=== PATIENT | female | born 1985 | race African-American/Black ===

== ENCOUNTER 2018-11-28 06:53 | Emergency (ER) | payer OTHER ==
[2018-11-28] MEDS ORDERED: SODIUM CHLORIDE 0.9% 1,000 ML IV ONE (07:35)
--- NOTE | 2018-11-28 07:37 | ED Physician Documentation ---
PD HPI ABD PAIN - Stated complaint Stated Complaint: ABD PX - Chief complaint Chief Complaint: Abd Pain - History obtained from History obtained from: Patient, Family - History of Present Illness Timing - onset: How many days ago (3) Timing - duration: Days (3) Timing - details: Abrupt onset, Still present Quality: Sharp, Pain Location: Suprapubic Improved by: Other (nothing) Worsened by: Other (nothing) Associated symptoms: Nausea. No: Vomiting, Diarrhea, Constipation, Dysuria, Chest pain, Dizzy, Loss of appetite, Vaginal dc Similar symptoms before: Has not had sx before Recently seen: Not recently seen - Additional information Additional information: Previously well 33-year-old female has developed severe supra pubic abdominal pain that comes in waves lasting about 1 minute. She is not able to localize the pain any more than the lower abdomen cramping. She states the pain is bad enough to stop her in her tracks and she is had to go home from work. She has had multiple episodes of pain per hour and when her pain is resolved she has no pain. She has not had urinary symptoms she has not had constipation or diarrhea. She has some nausea without vomiting. Review of Systems Constitutional: denies: Fever, Chills Eyes: denies: Decreased vision Ears: denies: Ear pain Nose: denies: Rhinorrhea / runny nose, Congestion Throat: denies: Sore throat Cardiac: denies: Chest pain / pressure, Palpitations Respiratory: denies: Dyspnea, Cough GI: reports: Abdominal Pain, Nausea. denies: Vomiting, Constipation, Diarrhea : denies: Dysuria, Frequency Skin: denies: Rash Musculoskeletal: denies: Neck pain, Back pain, Extremity pain Neurologic: denies: Generalized weakness, Focal weakness, Numbness PD PAST MEDICAL HISTORY - Present Medications Home Medications: Ambulatory Orders Medication Instructions Recorded Confirmed Hydrocodone/Acetaminophen 1 - 2 each PO Q6H PRN #14 tablet 11/28/18 [Hydrocodon-Acetaminophen 5-325] - Allergies Allergies/Adverse Reactions: Allergies Allergy/AdvReac Type Severity Reaction Status Date / Time No Known Drug Allergies Allergy Verified 11/28/18 07:07 PD ED PE NORMAL - Vitals Vital signs reviewed: Yes (hypertensive ) - General General: Alert and oriented X 3, No acute distress, Well developed/nourished - HEENT HEENT: Atraumatic, PERRL, EOMI - Neck Neck: Supple, no meningeal sign, No bony TTP - Cardiac Cardiac: RRR, No murmur - Respiratory Respiratory: No respiratory distress, Clear bilaterally - Abdomen Abdomen: Normal bowel sounds, Soft, Non tender, Non distended, No organomegaly - Back Back: No CVA TTP, No spinal TTP - Derm Derm: Normal color, Warm and dry, No rash - Extremities Extremities: No deformity, No edema - Neuro Neuro: Alert and oriented X 3, speed belt sander 2-12 intact, No motor deficit, No sensory deficit, Normal speech Eye Opening: Spontaneous Motor: Obeys Commands Verbal: Oriented GCS Score: 15 - Psych Psych: Normal mood, Normal affect Results - Vitals Vitals: Vital Signs - 24 hr 11/28/18 07:03 Temperature 36.6 C Heart Rate 65 Respiratory 16 Rate Blood Pressure 135/85 H O2 Saturation 100 Oxygen O2 Source Room air - Labs Labs: Laboratory Tests 11/28/18 11/28/18 11/28/18 07:36 07:45 07:45 WBC 4.9 RBC 3.98 L Hgb 12.0 Hct 36.2 L MCV 90.9 MCH 30.1 MCHC 33.1 RDW 14.4 Plt Count 273 MPV 6.5 L Neut # (Auto) 2.9 Lymph # (Auto) 1.4 L Cascade # (Auto) 0.4 Eos # (Auto) 0.2 Baso # (Auto) 0.0 Absolute Nucleated RBC 0.00 Nucleated RBC % 0.1 Sodium 141 Potassium 3.3 L Chloride 105 Carbon Dioxide 24 Anion Gap 12.0 BUN 11 Creatinine 0.8 Estimated GFR (MDRD) 100 Glucose 96 Calcium 8.5 Total Bilirubin 0.4 AST 15 ALT < 10 L Alkaline Phosphatase 30 L Total Protein 6.7 Albumin 3.6 Globulin 3.1 Albumin/Globulin Ratio 1.2 Lipase 37 Urine Color YELLOW Urine Clarity CLEAR Urine pH 6.0 Ur Specific [place] >=1.030 H Urine Protein NEGATIVE Urine Glucose (UA) NEGATIVE Urine Ketones NEGATIVE Urine Occult Blood TRACE-INTA Urine Nitrite NEGATIVE Urine Bilirubin NEGATIVE Urine Urobilinogen 0.2 (NORMAL) Ur Leukocyte Esterase NEGATIVE Ur Microscopic Review NOT INDICATED Urine Culture Comments NOT INDICATED Urine HCG, Qual NEGATIVE - Rads (name of study) CT abdomen/pel without Radiology: Prelim report reviewed (Impression: 1. 3 mm calcification adjacent to the right UVJ as described. Phlebolith is favored over distal stone but if there is persistent clinical concern, consider repeat exam with contrast enhancement and delayed imaging to evaluate ureteral patency. 2 Atypical appearance of the transverse colon as described suggesting inflammatory process/mild colitis. 3 Appendix upper normal in size but no periappendiceal inflammation), EMP read indepedently, See rad report Procedures - Bedside sono Bedside sono by EMP: With use of bedside ultrasound the right kidney is imaged and there is evidence of hydronephrosis on the right the kidney is sonographically nontender examination of the kidney on the left side shows no evidence of hydronephrosis. That kidney is also sonographically nontender. The pelvis is imaged there is no evidence of free fluid there is no urine in the bladder. PD MEDICAL DECISION MAKING - ED course Complexity details: considered differential, d/w patient, d/w family ED course: 33-year-old female with a history of undulating severe lower abdominal cramping without modifying factors has some hydro-on the right side. I suspect she has a kidney stone. An IV is begun she is given normal saline and a CT scan is obtained. The scan shows a distal 3mm stone on the right consistent with history and finding of hydro on bedside. The patient is administered IV saline. Departure - Departure Disposition: 01 Home, Self Care Clinical Impression: Ureterolithiasis Condition: Stable Instructions: ED Stone Renal W Colic Follow-Up: [facility] [Provider Group] Prescriptions: Hydrocodone/Acetaminophen [Hydrocodon-Acetaminophen 5-325] 1 - 2 each PO Q6H PRN #14 tablet PRN Reason: pain Forms: Activity restrictions
[2018-11-28 07:44] LABS: BILIRUBIN,URINE NEGATIVE (NEGATIVE); GLUCOSE, URINE (UA) NEGATIVE (NEGATIVE); KETONES,URINE (UA) NEGATIVE (NEGATIVE); LEUKOCYTE ESTERASE, URINE NEGATIVE (NEGATIVE); NITRITE,URINE NEGATIVE (NEGATIVE); OCCULT BLOOD,URINE TRACE-INTA (NEGATIVE); PROTEIN,URINE NEGATIVE (NEGATIVE); UROBILINOGEN,URINE 0.2 (NORMAL) E.U./dL (NORMAL)
[2018-11-28 07:46] LABS: CLARITY,URINE CLEAR (CLEAR); HCG UR QUAL NEGATIVE
[2018-11-28 07:54] LABS: BASOPHILS % (AUTO) 0.2 %; EOSINOPHILS # (AUTO) 0.2 10^3/uL (0.0-0.7); EOSINOPHILS % (AUTO) 3.5 %; LYMPHOCYTES # (AUTO) 1.4 10^3/uL (1.5-3.5); MEAN CORPUSCULAR HEMOGLOBIN 30.1 pg (27.0-31.0); MEAN CORPUSCULAR HGB CONC 33.1 g/dL (32.0-36.0); MEAN CORPUSCULAR VOLUME 90.9 fL (81.0-99.0); MEAN PLATELET VOLUME 6.5 fL (7.9-10.8); MONOCYTES # (AUTO) 0.4 10^3/uL (0.0-1.0); MONOCYTES % (AUTO) 8.5 %; NEUTROPHILS # (AUTO) 2.9 10^3/uL (1.5-6.6); NEUTROPHILS % (AUTO) 58.8 %; PLT - PLATELET COUNT 273 10^3/uL (130-450); RED BLOOD COUNT 3.98 10^6/uL (4.20-5.40); RED CELL DISTRIBUTION WIDTH 14.4 % (12.0-15.0); WHITE BLOOD COUNT 4.9 x10^3/uL (4.8-10.8)
[2018-11-28 08:06] LABS: ALBUMIN 3.6 g/dL (3.2-5.5); ALBUMIN/GLOBULIN RATIO 1.2 (1.0-2.2); ALKALINE PHOSPHATASE 30 IU/L (42-121); ALT ALANINE AMINOTRANSFERASE < 10 IU/L (10-60); AST ASPARTATE AMINOTRANSFERASE 15 IU/L (10-42); BILIRUBIN,TOTAL 0.4 mg/dL (0.2-1.0); BUN - BLOOD UREA NITROGEN 11 mg/dL (6-20); CALCIUM 8.5 mg/dL (8.5-10.3); CARBON DIOXIDE - CO2 24 mmol/L (21-32); CHLORIDE 105 mmol/L (101-111); CREATININE 0.8 mg/dL (0.4-1.0); GFR - MDRD 100 (>89); GLUCOSE 96 mg/dL (70-100); LIPASE 37 U/L (22-51); SODIUM 141 mmol/L (135-145); TOTAL PROTEIN 6.7 g/dL (6.7-8.2)
[2018-11-28] MEDS ORDERED: POTASSIUM CHLORIDE 20 MEQ TABLET PO STA (08:15)
--- NOTE | 2018-11-28 08:23 | CT Report ---
Reason: lower abdominal pain Procedure Date: 11/28/2018 Accession Number: [id number] / [id number] Procedure: CT - Abdomen/Pelvis WO CPT Code: FULL RESULT: EXAM: CT ABDOMEN AND PELVIS EXAM DATE: 11/28/2018 07:59 AM. CLINICAL HISTORY: Lower abdominal pain. COMPARISONS: None. TECHNIQUE: Routine helical CT imaging was performed through the abdomen and pelvis. IV contrast: No. Enteric contrast: No. Reconstructions: Coronal and sagittal. In accordance with CT protocol optimization, one or more of the following dose reduction techniques were utilized for this exam: automated exposure control, adjustment of mA and/or KV based on patient size, or use of iterative reconstructive technique. FINDINGS: Lung Bases: Unremarkable. Liver: Normal. No masses. Gallbladder/Bile Ducts: Unremarkable. Spleen: Normal. Pancreas: Normal. Adrenal Glands: Normal. Kidneys: Normal. No masses or hydronephrosis. There is a paucity of intra-abdominal fat and the courses of the distal ureters are difficult to discern but there is no ureteral dilatation. There is a 3 mm calcification seen on axial slice 81 which superimposes adjacent to the expected location of the right UVJ; phlebolith is favored over a distal stone. If there is clinical concern of renal stone, contrast enhanced scan with delayed imaging to evaluate ureteral patency would be specific. Peritoneal Cavity/Bowel: There is subtle atypical appearance to the transverse colon which appears to have ahaustral appearance; there are small amounts of surrounding inflammatory stranding in fat. Remaining small and large bowel appears normal. The appendix is upper limits of normal in size at 7-8 mm but there is no surrounding inflammation. Pelvic Organs: Normal. The bladder and visualized pelvic organs are within normal limits. Uterus appears upper limits of normal in size for age. Vasculature: No aneurysms or other significant abnormality. Bones: No significant abnormality. Other: None. IMPRESSION: 1. A 3 mm calcification adjacent to the right UVJ as described. Phlebolith is favored over distal stone but if there is persistent clinical concern, consider repeat exam with contrast enhancement and delayed imaging to evaluate ureteral patency. 2. Atypical appearance to the transverse colon as described suggesting inflammatory process/mild colitis. 3. Appendix upper normal in size but no periappendiceal inflammation. RADIA
[2018-11-28 08:51] VITALS: BP 114/67
== END 2018-11-28 08:53 | disposition home or self-care (01) ==
LOC: ED 06:53
DX: N20.1 Calculus of ureter (principal)
CPT/HCPCS: 36415; 74176; 80053; 81003; 81025; 83690; 85025; 96360; 99283; A9270; 81001; 87086

== ENCOUNTER 2019-01-06 22:16 | Emergency (ER) | payer OTHER ==
[2019-01-06 22:23] VITALS: BP 136/88
[2019-01-06 22:39] LABS: BILIRUBIN,URINE NEGATIVE (NEGATIVE); GLUCOSE, URINE (UA) NEGATIVE (NEGATIVE); KETONES,URINE (UA) NEGATIVE (NEGATIVE); LEUKOCYTE ESTERASE, URINE TRACE (NEGATIVE); NITRITE,URINE NEGATIVE (NEGATIVE); OCCULT BLOOD,URINE LARGE (NEGATIVE); PH,URINE 6.5 PH (5.0-7.5); PROTEIN,URINE 30 mg/dL (NEGATIVE); UROBILINOGEN,URINE 0.2 (NORMAL) E.U./dL (NORMAL)
[2019-01-06 22:40] LABS: CLARITY,URINE CLEAR (CLEAR); HCG UR QUAL NEGATIVE
--- NOTE | 2019-01-06 22:44 | ED Physician Documentation ---
PD HPI FEMALE - Stated complaint Stated Complaint: FEMALE - Chief complaint Chief Complaint: UTI - History obtained from History obtained from: Patient - History of Present Illness Timing - onset: Today Timing - duration: Hours Timing - details: Abrupt onset, Still present Associated symptoms: Dysuria, Urinary frequency, Hematuria. No: Fever, Back pain, Vaginal discharge, Genital sore/lesion Contributing factors: No: Exposed to STD Similar symptoms before: Diagnosis (UTI) Review of Systems Constitutional: denies: Fever, Chills GI: denies: Abdominal Pain, Nausea, Vomiting : reports: Dysuria, Frequency, Hematuria. denies: Discharge PD PAST MEDICAL HISTORY - Past Medical History Past Medical History: No - Past Surgical History Past Surgical History: No - Present Medications Home Medications: Ambulatory Orders Medication Instructions Recorded Confirmed Hydrocodone/Acetaminophen 1 - 2 each PO Q6H PRN #14 tablet 11/28/18 [Hydrocodon-Acetaminophen 5-325] Phenazopyridine HCl 100 mg PO TID PRN #10 tablet 01/06/19 Sulfamethox/Trimeth 800/160 1 each PO BID #10 tablet 01/06/19 [Bactrim Ds 800/160] - Allergies Allergies/Adverse Reactions: Allergies Allergy/AdvReac Type Severity Reaction Status Date / Time No Known Drug Allergies Allergy Verified 11/28/18 07:07 - Social History Does the pt smoke?: No Smoking Status: Former smoker Does the pt drink ETOH?: Yes Does the pt have substance abuse?: No Substance Use and Type: Marijuana - Immunizations Immunizations are current?: Yes PD ED PE NORMAL - Vitals Vital signs reviewed: Yes - General General: Alert and oriented X 3, No acute distress, Well developed/nourished - Abdomen Abdomen: Soft, Non tender - Back Back: No CVA TTP - Derm Derm: Normal color, Warm and dry - Neuro Neuro: Alert and oriented X 3, No motor deficit, Normal speech Results - Vitals Vitals: Vital Signs - 24 hr 01/06/19 22:18 Temperature 37.2 C Heart Rate 76 Respiratory 16 Rate Blood Pressure 136/88 H O2 Saturation 100 Oxygen O2 Source Room air - Labs Labs: Laboratory Tests 01/06/19 22:25 Urine Color YELLOW Urine Clarity CLEAR Urine pH 6.5 Ur Specific [place] 1.015 Urine Protein 30 H Urine Glucose (UA) NEGATIVE Urine Ketones NEGATIVE Urine Occult Blood LARGE H Urine Nitrite NEGATIVE Urine Bilirubin NEGATIVE Urine Urobilinogen 0.2 (NORMAL) Ur Leukocyte Esterase TRACE H Urine RBC TNTC H Urine WBC 6-10 H Ur Squamous Epith Cells FEW Squamous Urine Bacteria None Seen Ur Microscopic Review INDICATED Urine Culture Comments INDICATED Urine HCG, Qual NEGATIVE PD MEDICAL DECISION MAKING - ED course Complexity details: reviewed results, considered differential, d/w patient Departure - Departure Disposition: Home, Self Care Clinical Impression: Urinary tract infection Qualifiers: Urinary tract infection type: acute cystitis Hematuria presence: with hematuria Qualified Code(s): N30.01 - Acute cystitis with hematuria Condition: Stable Record reviewed to determine appropriate education?: Yes Instructions: ED UTI Cystitis Female Prescriptions: Phenazopyridine HCl 100 mg PO TID PRN #10 tablet PRN Reason: Abdominal Pain Sulfamethox/Trimeth 800/160 [Bactrim Ds 800/160] 1 each PO BID #10 tablet Comments: Stay well-hydrated. Tylenol or ibuprofen if needed for pains. Phenazopyridine can be used to decrease the discomfort of urination. Use Bactrim antibiotic twice daily for 5 more days for the infection. Recheck if not improving over the next couple of days.
[2019-01-06 22:46] LABS: BACTERIA,URINE None Seen /HPF (None Seen); RBC,URINE TNTC /HPF (0-5); SQUAMOUS EPITHELIAL CELL,UR FEW Squamous (<= Few)
[2019-01-06] MEDS ORDERED: PHENAZOPYRIDINE 100 MG TABLET PO STA (22:49)
[2019-01-06] MEDS ORDERED: SULFAMETH/TRIMETH DS 800/160 MG TABLET PO STA (22:49)
== END 2019-01-06 23:00 | disposition home or self-care (01) ==
LOC: ED 22:16
DX: N30.01 Acute cystitis with hematuria (principal); Z87.891 Personal history of nicotine dependence
CPT/HCPCS: 81001; 81025; 87077; 87086; 87181; 99283; A9270; 81003

== ENCOUNTER 2020-08-19 07:29 | Emergency (ER) | payer OTHER ==
[2020-08-19 07:37] VITALS: BP 139/88
[2020-08-19] MEDS ORDERED: diphenhydrAMINE 25 MG CAPSULE PO STA (07:53)
--- NOTE | 2020-08-19 07:55 | ED Physician Documentation ---
PD HPI SKIN - Stated complaint Stated Complaint: RASH - Chief complaint Chief Complaint: Allergic Rx - History obtained from History obtained from: Patient - Additional information Additional information: 35-year-old woman, previously healthy with no known allergies presents with pruritic rash to trunk, back, medial thighs that started around 3 AM. 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 Patient denies chest pain, dizziness, Fever, shortness of breath, coughing or wheezing, dizziness, nausea. Review of Systems Ten Systems: 10 systems reviewed and negative Constitutional: denies: Fever, Myalgias Throat: denies: Swollen tonsils Cardiac: denies: Chest pain / pressure Respiratory: denies: Dyspnea Skin: reports: Rash PD PAST MEDICAL HISTORY - Past Surgical History Past Surgical History: No - Present Medications Home Medications: Ambulatory Orders Medication Instructions Recorded Confirmed No Known Home Medications 08/19/20 08/19/20 - Allergies Allergies/Adverse Reactions: Allergies Allergy/AdvReac Type Severity Reaction Status Date / Time No Known Drug Allergies Allergy Verified 08/19/20 07:37 - Social History Does the pt smoke?: No Smoking Status: Former smoker Does the pt drink ETOH?: Yes Does the pt have substance abuse?: No - Immunizations Immunizations are current?: Yes PD ED PE NORMAL - Vitals Vital signs reviewed: Yes - General General: Alert and oriented X 3 - HEENT HEENT: Atraumatic, PERRL, EOMI, Moist mucous membranes, Pharynx benign - Neck Neck: Supple, no meningeal sign - Cardiac Cardiac: RRR - Respiratory Respiratory: No respiratory distress, Clear bilaterally - Abdomen Abdomen: Non tender, Non distended - Derm Derm: Other (Raised well-circumscribed erythematous blanching rash to medial thighs, trunk consistent with hives. Rash on back appears to have resolved.) - Extremities Extremities: No edema - Neuro Neuro: Alert and oriented X 3 - Psych Psych: Normal mood, Normal affect Results - Vitals Vitals: Vital Signs - 24 hr 08/19/20 07:34 Temperature 36.1 C L Heart Rate 83 Respiratory 18 Rate Blood Pressure 139/88 H O2 Saturation 97 Oxygen O2 Source Room air PD MEDICAL DECISION MAKING - ED course ED course: 35-year-old woman presents with uncomplicated allergic reaction without red flag features. Education given about allergy management. Strict return precautions given. Patient will follow up with her primary doctor. Departure - Departure Disposition: 01 Home, Self Care Clinical Impression: Hives Condition: Good Instructions: ED Allergic Reaction Local Other Comments: You are seen in the emergency department for an allergic reaction. It looks like you just have a rash. Take 50 mg (2 regular pills) of Benadryl or diphenhydramine when you develop itchy rash. This will help make it go away. Follow-up with your primary doctor to see if you need an allergy and immunology referral. Return to the ED if you have shortness of breath, chest pain, dizziness, nausea or other worsening of symptoms.
== END 2020-08-19 08:01 | disposition home or self-care (01) ==
LOC: ED 07:29
DX: L50.0 Allergic urticaria (principal); Z87.891 Personal history of nicotine dependence
CPT/HCPCS: 99282; 99284; A9270

== ENCOUNTER 2021-01-11 20:20 | Emergency (ER) | payer OTHER ==
[2021-01-11 21:07] LABS: RAPID STREP SCREEN Negative (Negative)
[2021-01-11] MEDS ORDERED: predniSONE 20 MG TABLET PO STA (22:08)
[2021-01-11] MEDS ORDERED: HYDROcodone/ACETAM 7.5 MG/325 MG 15 ML UDC PO STA (22:08)
--- NOTE | 2021-01-11 22:11 | ED Physician Documentation ---
History of Present Illness - Stated complaint Stated Complaint: LT EAR/SIDE HEAD PX/SORE THROAT - Chief complaint Chief Complaint: Heent - History obtained from History obtained from: Patient - Additonal information Additional information: Patient comes emergency department complaining of onset of left-sided sore throat, neck, and ear pain this morning shortly after getting up. Patient states is progressed through the day and that it hurts to swallow. No fevers or chills. No recent viral syndrome. No teeth that have been bothering the patient. No ringing in her ears. She feels that the symptoms started from the throat then radiated out. Review of Systems Ten Systems: 10 systems reviewed and negative Constitutional: reports: Reviewed and negative Eyes: reports: Reviewed and negative Ears: reports: Ear pain Nose: reports: Reviewed and negative. denies: Rhinorrhea / runny nose Throat: reports: Sore throat Cardiac: reports: Reviewed and negative Respiratory: reports: Reviewed and negative GI: reports: Reviewed and negative : reports: Reviewed and negative Skin: reports: Reviewed and negative Musculoskeletal: reports: Reviewed and negative Neurologic: reports: Reviewed and negative Psychiatric: reports: Reviewed and negative Endocrine: reports: Reviewed and negative Immunocompromised: reports: Reviewed and negative PD PAST MEDICAL HISTORY - Past Surgical History Past Surgical History: No - Present Medications Home Medications: Ambulatory Orders Medication Instructions Recorded Confirmed HYDROcodone/ACET 7.5/325 APOLLO 7.5 ml PO Q6HR PRN #100 ml 01/11/21 [Lortab 7.5/325 Apollo] predniSONE [Deltasone] 60 mg PO DAILY 3 Days #9 tablet 01/11/21 - Allergies Allergies/Adverse Reactions: Allergies Allergy/AdvReac Type Severity Reaction Status Date / Time No Known Drug Allergies Allergy Verified 01/11/21 20:50 - Social History Does the pt smoke?: No Smoking Status: Former smoker Does the pt drink ETOH?: Yes Does the pt have substance abuse?: No - Immunizations Immunizations are current?: Yes PD ED PE NORMAL - Vitals Vital signs reviewed: Yes - General General: Alert and oriented X 3, No acute distress - HEENT HEENT: Atraumatic, PERRL, EOMI, Ears normal, Moist mucous membranes, Other (Large aphthous ulcer on left tonsil. Moderate surrounding erythema and slight enlargement of tonsil. No exudates.) - Neck Neck: Supple, no meningeal sign, Other (Mild left anterior cervical lymphadenopathy.) - Cardiac Cardiac: RRR, No murmur - Respiratory Respiratory: No respiratory distress, Clear bilaterally - Derm Derm: Normal color, Warm and dry, No rash - Extremities Extremities: No deformity - Neuro Neuro: Alert and oriented X 3 - Psych Psych: Normal mood, Normal affect Results - Vitals Vitals: Vital Signs - 24 hr 01/11/21 01/11/21 20:47 22:28 Temperature 36.2 C L 36.5 C Heart Rate 86 86 Respiratory 18 16 Rate Blood Pressure 134/75 H 128/72 O2 Saturation 100 100 Oxygen O2 Source Room air - Labs Labs: Laboratory Tests 01/11/21 20:53 Group A Strep Rapid Negative PD MEDICAL DECISION MAKING - ED course Complexity details: considered differential, d/w patient ED course: I discussed with the patient that she does appear to have an aphthous ulcer. I do not find any evidence of a submandibular gland obstruction or of an acute otitis media. We have discussed symptomatic management at home, as well as usual indications for return. Patient has been given a dose of prednisone of Lortab elixir here. Departure - Departure Disposition: 01 Home, Self Care Clinical Impression: Aphthous ulcer of pharynx or hypopharynx, Acute viral pharyngitis Condition: Stable Instructions: ED Canker Sore, ED Pharyngitis Viral Prescriptions: HYDROcodone/ACET 7.5/325 APOLLO [Lortab 7.5/325 Apollo] 7.5 ml PO Q6HR PRN #100 ml PRN Reason: Pain predniSONE [Deltasone] 60 mg PO DAILY 3 Days #9 tablet Comments: You have an aphthous ulcer, or "canker sore" on your tonsil. This is most likely why your throat hurts so much. You may have a viral throat inflammation in general as well. You may take the prednisone and the Lortab elixir as needed for pain. You may also take ibuprofen, as well. Overall, the rest of your exam is good, and the symptoms should pass on their own in the next several days. Discharge Date/Time: 01/11/21 22:28
[2021-01-11 22:30] VITALS: BP 128/72
== END 2021-01-11 22:28 | disposition home or self-care (01) ==
LOC: ED 20:20
DX: K12.0 Recurrent oral aphthae (principal); J02.9 Acute pharyngitis, unspecified; Z87.891 Personal history of nicotine dependence
CPT/HCPCS: 87070; 87430; 99283; 99284; A9270; J7512

== ENCOUNTER 2022-07-28 20:28 | Outpatient (CLI) | payer OTHER | END 2022-07-28 20:29 | disposition left against medical advice (07) | LOC: EMS 20:28 | DX: Z04.71 Encounter for examination and observation following alleged adult physical abuse (principal); Y04.8XXA Assault by other bodily force, initial encounter ==

== ENCOUNTER 2022-11-14 09:04 | Emergency (ER) | payer OTHER ==
[2022-11-14 09:11] VITALS: BP 154/108
--- NOTE | 2022-11-14 09:13 | ED Physician Documentation ---
PD HPI NECK PAIN - Stated complaint Stated Complaint: NECK PX, BACK PX - Chief complaint Chief Complaint: Back Pain - History obtained from History obtained from: Patient - History of Present Illness Timing - onset: How many days ago (4) Timing - duration: Days (4) Timing - details: Abrupt onset, Still present Location: Mid, Lower, Left (extending from neck over to left posterior shoulder. Increased with ROM of the shoulder, kiera abduction and rotational movement.) Quality: Pain, Spasm Associated symptoms: No: Weakness, Numbness Improves with: Rest. No: Meds Worsened by: Movement, Lifting, Twisting Contributing factors: Trauma (she did not have particular injury recently. She states she did fall onto left shoulder in recent past and had pain on ROM for about a month then improved.) Similar symptoms before: No diagnosis Review of Systems Skin: denies: Abrasion (s), Laceration (s) Neurologic: denies: Focal weakness, Numbness PD PAST MEDICAL HISTORY - Past Medical History Cardiovascular: None Musculoskeletal: None - Past Surgical History Past Surgical History: No - Present Medications Home Medications: Ambulatory Orders Medication Instructions Recorded Confirmed Meloxicam [Mobic] 7.5 mg PO BID 10 Days #20 tablet 11/14/22 diphenhydrAMINE [Benadryl] 25 mg PO Q4-6H PRN 11/14/22 11/14/22 methocarbamoL [Robaxin] 500 mg PO Q6H PRN #30 tablet 11/14/22 - Allergies Allergies/Adverse Reactions: Allergies Allergy/AdvReac Type Severity Reaction Status Date / Time No Known Drug Allergies Allergy Verified 11/14/22 09:07 - Social History Does the pt smoke?: No Smoking Status: Former smoker Does the pt drink ETOH?: Yes Does the pt have substance abuse?: No - Immunizations Immunizations are current?: Yes PD ED PE NORMAL - Vitals Vital signs reviewed: Yes - General General: Alert and oriented X 3, No acute distress, Well developed/nourished - Neck Neck: Supple, no meningeal sign, No bony TTP (she is tender at trapezius muscle area to side of neck and then to suprascaular area mostly. No rash nor sores. The shoulder itself is not tender. However she does have susanne elicited with rotational movements, most with abduction, internal rotation, and flexion. No effusion. No noted deformity.), No adenopathy Results - Vitals Vitals: Vital Signs - 24 hr 11/14/22 09:07 Temperature 36.6 C Heart Rate 68 Respiratory 16 Rate Blood Pressure 154/108 H O2 Saturation 100 Oxygen O2 Source Room air - Rads (name of study) left shoulder Relevant Findings:: Prelim report reviewed, EMP independent interpretation of test (no acute bony abnormalities. ), See rad report PD Medical Decision Making - ED course Complexity details: reviewed results, considered differential (sounds likely some rotator cuff tendons injury in the past. 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 ), d/w patient Departure - Departure Disposition: 01 Home, Self Care Clinical Impression: Left shoulder tendonitis Condition: Stable Record reviewed to determine appropriate education?: Yes Instructions: ED Tendinitis Rotator Cuff Follow-Up: [facility] [Provider Group] Prescriptions: Meloxicam [Mobic] 7.5 mg PO BID 10 Days #20 tablet methocarbamoL [Robaxin] 500 mg PO Q6H PRN #30 tablet PRN Reason: Spasms Comments: Your x-ray appears normal regarding the bones. Clinically it sounds likely you have some underlying rotator cuff injury with recurrent inflammation/tendinitis of it. At this point I would suggest less use of the shoulder in the short-term to include no lifting or carrying at work and periodically using the sling through the day over the next several days to week to help reduce motion. Gentle range of motion and purposeful movement at times through the day so your shoulder does not stiffen. I would have you try a combination of long-acting anti-inflammatory meloxicam twice daily for 7 to 10 days with food. Robaxin muscle relaxant to help with stiffness and spasm through the area. Add Tylenol every 4-6 hours if needed for pain. Follow-up with orthopedics for recheck in about a week, call today for an appointment. At that point it can be determined if any further assessment is needed such as MRI to look for partial tears etc. or physical therapy to try to help recurrent episodes. Other treatments are possible to and I would defer to the orthopedic on follow-up. I sent your prescriptions to your preferred pharmacy. Forms: Activity restrictions Discharge Date/Time: 11/14/22 10:28
[2022-11-14] MEDS ORDERED: NAPROXEN 250 MG TABLET PO STA (09:29)
--- NOTE | 2022-11-14 09:47 | XRAY Report ---
PROCEDURE: Shoulder 3 View LT INDICATIONS: left shoulder/scapular pain for week TECHNIQUE: 3 views of the shoulder were acquired. COMPARISON: None. FINDINGS: Bones: No fractures or dislocations. No suspicious bony lesions. Visualized ribs appear intact. Soft tissues: No suspicious soft tissue calcifications. IMPRESSION: No visualized acute fracture or dislocation. However, occult injury cannot be excluded. Recommend naye rt interval imaging follow-up in 7-10 days as clinically indicated for additional evaluation. Reviewed by: Yeimy Barros MD on 11/14/2022 9:45 AM PDT Approved by: Yeimy Barros MD on 11/14/2022 9:45 AM PDT Station ID: [id number]
== END 2022-11-14 10:28 | disposition home or self-care (01) ==
LOC: ED 09:04
DX: M77.8 Other enthesopathies, not elsewhere classified (principal); Z87.891 Personal history of nicotine dependence
CPT/HCPCS: 73030; 99283; 99284; A9270